=== PATIENT | female | born 1935 | race Caucasian/White ===

== ENCOUNTER → 2016-10-08 | Outpatient (CLI) | payer MEDICARE, BC ==
--- NOTE | 2016-10-08 13:53 | MM ---
Reason for exam: history of breast cancer, mastectomy. Last mammogram was performed 2 years and 2 months ago. History: Patient is postmenopausal and has history of breast cancer at age 48. Family history of breast cancer in daughter at age 50. Excisional biopsy of the left breast, October 18, 2007. Benign stereotactic core biopsy of the left breast, September 23, 2002. Mastectomy of the right breast, 1983. Core biopsy of the left breast. Excisional biopsy of the left breast. Excisional biopsy of the right breast. Physical Findings: Nurse did not find any significant physical abnormalities on exam. MG 3D Diag Mammo W/Cad LT CC and MLO view(s) were taken of the left breast. Prior study comparison: August 07, 2014, left breast MG diagnostic mammo LT w CAD. August 03, 2013, left breast MG diagnostic mammo LT w CAD. July 12, 2012, left diagnostic mammogram w/CAD. There are scattered fibroglandular densities. Previous mammotome biopsy in the left breast. No significant new findings when compared with previous films. These results were verbally communicated with the patient and result sheet given to the patient on 10/08/16. ASSESSMENT: Negative, BI-RAD 1 RECOMMENDATION: Follow-up diagnostic mammogram of the left breast in 1 year. Manage on a clinical basis with regard to possible right cervical lymphadenopathy. Ultrasound can be considered.
== END | disposition home or self-care (01) ==
LOC: RADMAMWWP 10:11
PROVIDERS: ATTEND Family Medicine
DX: Z85.3 Personal history of malignant neoplasm of breast (principal); Z90.11 Acquired absence of right breast and nipple
CPT/HCPCS: G0206; G0279

== ENCOUNTER → 2017-07-29 | Outpatient (CLI) | payer MEDICARE, BC ==
--- NOTE | 2017-07-29 16:10 | XR ---
EXAMINATION TYPE: XR Hip Complete LT DATE OF EXAM: 07/29/2017 CLINICAL HISTORY: pain TECHNIQUE: AP and frogleg views of the left hip are obtained. COMPARISON: None. FINDINGS: There is no acute fracture/dislocation evident. The joint space appears mildly narrowed. The overlying soft tissue appears unremarkable. There may be slightly expansile left ischial lesion adjacent to the inferior pubic ramus. Consider CT correlation. IMPRESSION: 1. There is no acute fracture or dislocation. 2. There may be slightly expansile left ischial lesion adjacent to the inferior pubic ramus. Consider CT correlation.
== END | disposition home or self-care (01) ==
LOC: RADXRYALE 13:52
PROVIDERS: ATTEND Nurse Practitioner Family
DX: M25.552 Pain in left hip (principal)
CPT/HCPCS: 73502

== ENCOUNTER 2017-09-27 17:19 | Inpatient (IN) | payer MEDICARE, BC ==
[2017-09-27] MEDS ORDERED: ACETAMINOPHEN TAB 325 MG TAB PO STA (17:39)
--- NOTE | 2017-09-27 18:01 | ED ---
Lower Extremity Injury HPI - General Chief Complaint: Extremity Injury, Lower Stated Complaint: Fall Time Seen by Provider: 09/27/17 17:25 Source: patient Mode of arrival: ambulatory Limitations: no limitations - History of Present Illness Initial Comments: 82-year-old female patient presents to the emergency department today for evaluation of left hip pain after expressing a fall this morning. Patient states around 10 AM she was getting out of the tub when she tripped and fell landing on her left hip. States that she has been having pain with ambulation since then. She denies hitting her head or losing consciousness. She denies any other injuries. Patient states the pain is mostly located in the left posterior hip. She denies any radiation of the pain down the leg. She denies any numbness or tingling to the lower extremities. She denies any head, neck, or back pain. Denies any loss of bowel or bladder control. Denies any saddle anesthesia. Patient denies any headache, chest pain, shortness of breath, dizziness, weakness, abdominal pain, nausea, vomiting, or difficulties with bowel movements or urination. - Related Data Allergies Allergy/AdvReac Type Severity Reaction Status Date / Time hydrocodone bitartrate AdvReac Unknown Nausea, Verified 09/27/17 17:26 [From [employer]] Dazed. Review of Systems ROS Statement: Those systems with pertinent positive or pertinent negative responses have been documented in the HPI. ROS Other: All systems not noted in ROS Statement are negative. Past Medical History Past Medical History: Cancer, Musculoskeletal Disorder, Osteoarthritis (OA) Additional Past Medical History / Comment(s): HX OF BREAST CANCER, BLADDER PAIN , "LEAKY HEART VALVE", BACK PAIN. History of Any Multi-Drug Resistant Organisms: None Reported Past Surgical History: Back Surgery, Breast Surgery Additional Past Surgical History / Comment(s): RIGHT MASTECTOMY, OVARY REMOVED. Past Anesthesia/Blood Transfusion Reactions: No Reported Reaction Past Psychological History: No Psychological Hx Reported Smoking Status: Never smoker Past Alcohol Use History: None Reported Past Drug Use History: None Reported - Past Family History Father Family Medical History: Cancer, Rheumatoid Arthritis (RA) Daughter(s) Family Medical History: Cancer, GI Bleed Additional Family Medical History / Comment(s): BREAST CANCER General Exam Limitations: no limitations General appearance: alert, in no apparent distress, other (This is a well- developed, well-nourished elderly female patient in no acute distress. Vital signs upon presentation are temperature 97.7F, pulse 58, respirations 18, blood pressure 190/62, pulse ox 96% on room air.) Eye exam: Present: normal appearance, PERRL, EOMI. Absent: scleral icterus, conjunctival injection, periorbital swelling ENT exam: Present: normal exam, normal oropharynx, mucous membranes moist Neck exam: Present: normal inspection, full ROM, other (Nontender, no step-off, no deformity to firm midline palpation of the posterior cervical spine. Full range of motion without pain or limitation.). Absent: tenderness, meningismus, lymphadenopathy Respiratory exam: Present: normal lung sounds bilaterally. Absent: respiratory distress, wheezes, rales, rhonchi, stridor Cardiovascular Exam: Present: regular rate, normal rhythm, normal heart sounds. Absent: systolic murmur, diastolic murmur, rubs, gallop, clicks GI/Abdominal exam: Present: soft, normal bowel sounds. Absent: distended, tenderness, guarding, rebound, rigid Extremities exam: Present: normal inspection, full ROM (Increased pain to the left hip with abduction and external rotation.), normal capillary refill, other (Skin to the lower eduction a pink, warm, and dry. Cap refills less than 3 seconds. Pedal posttibial pulses are 2+ and equal bilaterally. There is no shortening or rotation noted to the legs.). Absent: tenderness, pedal edema, joint swelling, calf tenderness Back exam: Present: normal inspection, other (Nontender, no step-off, no deformity to firm midline palpation of the thoracic and lumbar vertebrae. Full range of motion without pain or limitation.). Absent: vertebral tenderness Neurological exam: Present: alert, oriented X3, CN II-XII intact Psychiatric exam: Present: normal affect, normal mood Skin exam: Present: warm, dry, intact, normal color. Absent: rash Course Vital Signs 09/27/17 17:24 Temperature 97.7 F Pulse Rate 58 L Respiratory 18 Rate Blood Pressure 190/62 O2 Sat by Pulse 96 Oximetry Medical Decision Making - Medical Decision Making 82-year-old female patient presented to the emergency department today for evaluation of left hip pain after expressing a fall this morning. Physical examination was relatively unremarkable, she did have some left hip tenderness however had injured motion and good neurovascular status. There is no shortening or rotation noted. X-ray did reveal a impacted femoral neck fracture. I did discuss the case with Reyna Tucker PA-C [facility] who agrees to admission. She will be admitted to Dr. Carter. Patient will be made nothing by mouth at midnight. Pain management will be provided. Baseline labs will be obtained. - Radiology Data Radiology results: report reviewed, image reviewed Single AP view of the pelvis was obtained. 2 views of the left hip are obtained. There is an acute impacted fractures of the neck of the proximal left femur. The femoral head is in good positioning and the acetabular cavity. The overlying soft tissue appears unremarkable. Frontal view of the pelvis demonstrates preservation of the iliac bones and pubic bones. Impression by Dr. Al shows an acute nondisplaced impacted fracture of the neck of the proximal left femur. Disposition Clinical Impression: Fracture of femoral neck, left, closed Disposition: ADMITTED IP TO THIS [facility] Condition: Serious Referrals: Crescencio Escalona MD [Primary Care Provider] - 1-2 days Decision to Admit Reason: Admit from EC Decision Date: 09/27/17 Decision Time: 19:30
--- NOTE | 2017-09-27 18:29 | XR ---
EXAMINATION TYPE: XR Hip LT and AP Pelvis DATE OF EXAM: 09/27/2017 COMPARISON: NONE HISTORY: Post fall TECHNIQUE: A single AP view of the pelvis is obtained. Two views of the left hip are obtained. FINDINGS: Acute impacted fracture through the neck of the proximal left femur. The femoral head is good positio deonte sided acetabular cavity. The overlying soft tissue appears unremarkable. Frontal view of the pelvis demonstrates preservation of the iliac bones and pubic bones. IMPRESSION: Acute nondisplaced impacted fracture through the neck of the proximal left femur.
[2017-09-27] MEDS ORDERED: NALOXONE 0.4 MG/ML 1 ML VIAL IV PRN (19:26)
[2017-09-27] MEDS ORDERED: ACETAMINOPHEN TAB 325 MG TAB PO PRN (19:26)
[2017-09-27] MEDS ORDERED: MORPHINE SULFATE 2 MG/ML SYRINGE IV PRN (19:26)
[2017-09-27] MEDS ORDERED: ONDANSETRON 4 MG/2 ML VIAL IVP PRN (19:26)
[2017-09-27 19:31] LABS: Basophils % (A) 0 %; Eosinophils # (A) 0.1 k/uL (0-0.7); Eosinophils % (A) 1 %; HCT 37.8 % (34.0-46.0); HGB 12.6 gm/dL (11.4-16.0); Lymphocytes # (A) 1.1 k/uL (1.0-4.8); Lymphocytes % (A) 12 %; MCHC 33.4 g/dL (31.0-37.0); MCV 86.8 fL (80.0-100.0); Mean Platelet Volume 7.6; Monocytes # (A) 0.5 k/uL (0-1.0); Monocytes % (A) 6 %; Neutrophils % (A) 80 %; Platelet Count 190 k/uL (150-450); RBC 4.36 m/uL (3.80-5.40); RDW 14.1 % (11.5-15.5); WBC 8.8 k/uL (3.8-10.6)
--- NOTE | 2017-09-27 19:38 | XR ---
EXAMINATION TYPE: XR chest 1V portable DATE OF EXAM: 09/27/2017 COMPARISON: Prior chest x-ray dated 11/18/2015. HISTORY: Preop chest TECHNIQUE: Single frontal view of the chest is obtained. FINDINGS: There is no focal air space opacity, pleural effusion, or pneumothorax seen. The heart is borderline in size taking into consideration that there is magnification by the portable technique ut ilized. No acute infiltrate, pneumothorax or pulmonary edema. The osseous structures are intact. IMPRESSION: Borderline size heart without vascular decompensation or acute infiltrate or pleural effu sandra.
[2017-09-27 19:40] LABS: Albumin 3.9 g/dL (3.5-5.0); Calcium 9.1 mg/dL (8.4-10.2); Total Bilirubin 0.4 mg/dL (0.2-1.3); Total Protein 6.6 g/dL (6.3-8.2)
[2017-09-27 19:43] LABS: INR 1.1 (<1.2); Partial Thromboplastin Time 22.8 sec (22.0-30.0); Prothrombin Time 10.4 sec (9.0-12.0)
[2017-09-27] MEDS ORDERED: ENALAPRILAT 1.25 MG/ML 1 ML VIAL IVP STA (19:46)
--- NOTE | 2017-09-28 07:51 | P.HPOR ---
History of Present Illness H&P Date: 09/28/17 This is an 82-year-old female who is admitted for left hip fracture after a fall. Patient states that she was getting out of the bathtub yesterday and her bathroom rug was far away so when she stepped out of the shower she slipped and fell. Patient denies hitting her head or any loss of consciousness. Patient states that she was able to walk on the left lower extremity yesterday, but noticed increased pain. Patient complains of pain in the groin with range of motion of the left leg. Patient states that her pain is well controlled today. Patient's past medical history significant for breast cancer. Patient denies any neck pain, back pain, fever/chills, numbness, weakness, tingling, shortness of breath or chest pain. Review of Systems See HPI. Past Medical History Past Medical History: Cancer, Memory Impairment, Musculoskeletal Disorder, Osteoarthritis (OA) Additional Past Medical History / Comment(s): HX OF BREAST CANCER, BLADDER PAIN , "LEAKY HEART VALVE", BACK PAIN. History of Any Multi-Drug Resistant Organisms: None Reported Past Surgical History: Back Surgery, Breast Surgery, Cholecystectomy Additional Past Surgical History / Comment(s): RIGHT MASTECTOMY, OVARY REMOVED. Past Anesthesia/Blood Transfusion Reactions: No Reported Reaction Past Psychological History: No Psychological Hx Reported Smoking Status: Never smoker Past Alcohol Use History: None Reported Past Drug Use History: None Reported - Past Family History Father Family Medical History: Cancer, Rheumatoid Arthritis (RA) Daughter(s) Family Medical History: Cancer, GI Bleed Additional Family Medical History / Comment(s): BREAST CANCER Medications and Allergies Allergies Allergy/AdvReac Type Severity Reaction Status Date / Time hydrocodone bitartrate AdvReac Unknown Nausea, Verified 09/27/17 17:26 [From [place]] Dazed. Physical Examination On exam patient is alert and oriented 3 and lying in bed in no acute distress. Head is normocephalic and atraumatic. Patient has full range of motion of the head and neck without pain or difficulty. Exams of bilateral upper extremities and right lower extremity are within normal limits. Patient has full range of motion of the left lower extremity, but has some groin pain with range of motion. Patient has pain with logroll of the left lower extremity. Calf is soft and nontender to palpation. Patient has full foot and ankle motion bilaterally without pain or difficulty. Dorsalis pedis pulse 2+. Neurovascular status and circulatory status are intact. Results X-rays of the left hip and pelvis show a nondisplaced impacted femoral neck fracture. - Labs Labs: Abnormal Lab Results - Last 24 Hours (Table) 09/27/17 Range/Units 19:21 Chloride 108 H (98-107) mmol/L Carbon Dioxide 21 L (22-30) mmol/L BUN 22 H (7-17) mg/dL H & H 09/27/17 Range/Units 19:21 Hgb 12.6 (11.4-16.0) gm/dL Hct 37.8 (34.0-46.0) % Coagulation 09/27/17 Range/Units 19:21 INR 1.1 (<1.2) Result Diagrams: 09/27/17 19:21 09/27/17 19:21 Assessment and Plan (1) Fall Current Visit: Yes Status: Acute Code(s): W19.XXXA - UNSPECIFIED FALL, INITIAL ENCOUNTER SNOMED Code(s): 6062486 (2) Fracture of femoral neck, left, closed Current Visit: Yes Status: Acute Code(s): S72.002A - FRACTURE OF UNSP PART OF NECK OF LEFT FEMUR, INIT SNOMED Code(s): 762846640 Plan: 1. Patient is to be nonweightbearing to the left lower extremity. 2. NPO diet. 3. Continue pain control. 4. DVT prophylaxis with SCDs and DAVID misbah. 5. Appreciate input from medicine. 6. Left hip hemiarthroplasty scheduled for 09/28/2017, pending medical clearance and consent.
[2017-09-28] MEDS ORDERED: IV FLUID CONTINUATION 1,000 ML IV ONE (14:50)
--- NOTE | 2017-09-28 14:56 | P.CONS ---
History of Present Illness - Reason for Consult Consult date: 09/28/17 Preoperative clearance - Chief Complaint Fall - History of Present Illness 82-year-old female who is admitted for left hip fracture after a mechanical fall. Patient has history of mild dementia and multiple history was taken from the family member at the bedside. She denied having any syncope or loss of consciousness. No head trauma. No shortness of breath, palpitations or chest pain. No dizziness. After the fall she was able to walk on the left leg but was having increased pain in the left hip/groin area. At baseline patient is able to walk for 1 hour every day. She is very active playing golf. She has history of a leaky valve and she follows up with Dr. Pitts for that. Review of Systems 12 point review of system performed, negative except HPI Past Medical History Past Medical History: Cancer, Memory Impairment, Musculoskeletal Disorder, Osteoarthritis (OA) Additional Past Medical History / Comment(s): HX OF BREAST CANCER, BLADDER PAIN , "LEAKY HEART VALVE", BACK PAIN. History of Any Multi-Drug Resistant Organisms: None Reported Past Surgical History: Back Surgery, Breast Surgery, Cholecystectomy Additional Past Surgical History / Comment(s): RIGHT MASTECTOMY, OVARY REMOVED. Past Anesthesia/Blood Transfusion Reactions: No Reported Reaction Past Psychological History: No Psychological Hx Reported Smoking Status: Never smoker Past Alcohol Use History: None Reported Past Drug Use History: None Reported - Past Family History Father Family Medical History: Cancer, Rheumatoid Arthritis (RA) Daughter(s) Family Medical History: Cancer, GI Bleed Additional Family Medical History / Comment(s): BREAST CANCER Medications and Allergies Home Medications Medication Instructions Recorded Confirmed Type Donepezil [Aricept] 10 mg PO HS 09/28/17 09/28/17 History Ibuprofen [Motrin] 800 mg PO TID 09/28/17 09/28/17 History Loperamide [Imodium] 2 mg PO QID 09/28/17 09/28/17 History Pentosan Polysulfate Sodium 100 mg PO TID 09/28/17 09/28/17 History [[place]] Allergies Allergy/AdvReac Type Severity Reaction Status Date / Time hydrocodone bitartrate AdvReac Unknown Nausea, Verified 09/27/17 17:26 [From [place]] Dazed. Physical Exam Vitals: Vital Signs Temp Pulse Pulse Resp BP BP Pulse Ox 09/28/17 09:23 98.3 F 65 16 156/68 95 09/28/17 05:10 98.6 F 63 16 131/51 93 L 09/28/17 04:08 16 09/27/17 21:50 97.9 F 59 L 16 161/65 93 L 09/27/17 20:49 98.0 F 54 L 18 181/83 94 L 09/27/17 20:35 57 L 18 183/78 95 09/27/17 19:34 59 L 18 197/85 94 L 09/27/17 17:24 97.7 F 58 L 18 190/62 96 Intake and Output 09/27/17 09/28/17 09/28/17 22:59 06:59 14:59 Output Total 300 1100 Balance -300 -1100 Output: Urine 300 1100 Other: Voiding Method Indwelling Catheter Indwelling Catheter Weight 63.503 kg Constitutional: No acute distress, conversant, pleasant Eyes:Anicteric sclerae, moist conjunctiva, no lid-lag, PERRLA, ENMT: Oropharynx clear, no erythema, exudates Neck: Supple, FROM, no masses, or JVD, No carotid bruits, No thyromegaly Lungs: Clear to auscultation, Clear to percussion, Normal respiratory effort, no accessory muscle use Cardiovascular: Heart regular in rate and rhythm, No murmurs, gallops, or rubs, No peripheral edema Abdominal: Soft, Nontender, no guarding, rebound or rigidity, Normoactive bowel sounds, No hepatomegaly, No splenomegaly, No palpable mass Skin: Normal temperature, tone, texture, turgor, no induration, No subcutaneous nodules, No rash, lesions, No ulcers Extremities: Severe pain in the left hip with any range of motion, No digital cyanosis, No clubbing, Pedal pulses intact and symmetrical, Radial pulses intact and symmetrical, No calf tenderness Psychiatric: Alert and oriented to person, place and time, appropriate affect, intact judgement Neuro: Muscles Strength 5/5 in all 4 extremities, Sensation to light touch grossly present throughout, Cranial nerves II-XII grossly intact, no focal sensory deficits Results CBC & Chem 7: 09/27/17 19:21 09/27/17 19:21 Labs: Abnormal Lab Results - Last 24 Hours (Table) 09/27/17 Range/Units 19:21 Chloride 108 H (98-107) mmol/L Carbon Dioxide 21 L (22-30) mmol/L BUN 22 H (7-17) mg/dL Assessment and Plan Plan: Preoperative evaluation Patient is very low risk for surgery as she is very active at baseline. 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 Patient is not symptomatic from this, no symptoms of congestive heart failure, no chest pain, shortness of breath or syncope. No palpitations. Discussed with surgery nurse History of mitral regurgitation, severe dementia, overactive bladder Stable Resume home meds DVT prophylaxis Start AC as soon as okay with surgery.
[2017-09-28] MEDS: ceFAZolin IN SWFI 2 GM/20 ML SYRINGE IVP SCH ×2 (15:16→23:46)
[2017-09-28] MEDS ORDERED: MIDAZOLAM 2 MG/2 ML VIAL ONE (15:16)
[2017-09-28] MEDS ORDERED: PROPOFOL 10 MG/ML 20 ML VIAL IV ONE (15:16)
[2017-09-28] MEDS ORDERED: diphenhydrAMINE 50 MG/ML 1 ML VIAL ONE (15:16)
[2017-09-28] MEDS ORDERED: fentaNYL (PF) 50 MCG/ML 2 ML AMP ONE (15:16)
[2017-09-28] MEDS ORDERED: KETAMINE 10 MG/ML 20 ML VIAL ONE (15:16)
[2017-09-28] MEDS ORDERED: HYDROmorphone 0.5 MG/0.5 ML SYRINGE IVP PRN (15:23)
[2017-09-28] MEDS ORDERED: DIAZEPAM 5 MG TAB PO PRN (15:23)
[2017-09-28] MEDS ORDERED: HYDROcodone/APAP 5-325MG 1 EACH TAB PO PRN ×2 (15:23)
[2017-09-28] MEDS ORDERED: ONDANSETRON 4 MG/2 ML VIAL IVP PRN (15:23)
[2017-09-28] MEDS ORDERED: MAGNESIUM HYDROXIDE 2,400 MG/10 ML CUP PO PRN (15:23)
[2017-09-28] MEDS ORDERED: NALOXONE 0.4 MG/ML 1 ML VIAL IV PRN (15:23)
[2017-09-28] MEDS ORDERED: LACTATED RINGERS 1,000 ML IV ONE (15:30)
[2017-09-28] MEDS ORDERED: ceFAZolin 3,000 MG in SODIUM CHLORIDE 0.9% IRRIGATIO 3,000 ML IRRIGATION ONE (15:50)
--- NOTE | 2017-09-28 16:26 | P.OP ---
Date of Procedure: 09/28/17 Preoperative Diagnosis: Subcapital fracture left hip Postoperative Diagnosis: Subcapital fracture left hip Procedure(s) Performed: Left hip hemiarthroplasty the direct anterior approach Implants: Moeller and nephew Polarstem size 3 standard Moeller & Nephew tandem unipolar, 44 mm Moeller & Nephew tandem unipolar 12/14 taper sleeve, -3 mm All components were press-fit. Anesthesia: spinal Surgeon: Kvng Carter Migratory Worker #1: Reyna Schafer Estimated Blood Loss (ml): 75 Pathology: other (Femoral head) Condition: stable Disposition: PACU Indications for Procedure: This is an 82-year-old female that slipped and fell at home. She sustained a subcapital fracture of her left hip. After discussing the surgical and nonsurgical treatment options with her and her family at length, I recommended a left hip hemiarthroplasty and informed consent was obtained. Operative Findings: The operative findings are consistent with a subcapital fracture of the left hip. Description of Procedure: Patient was seen and evaluated in the preoperative area, consent was reviewed, and the surgical site was marked with a skin marker. Patient was then brought to the operating room and given prophylactic antibiotics intravenously.. A spinal anesthetic was administered by the anesthesia department. The patient was then placed on the [place] table with the bony prominences well-padded. The hip area was then prepped and draped in usual sterile fashion. A universal timeout was then performed, which confirmed the patient's name, surgical site, ALLERGIES, and procedure being performed. Next the incision site was located at 1 cm distal and 1 cm lateral to the anterior superior iliac spine. The skin and subcutaneous tissues were sharply incised. Incision was carefully dissected down to the fascia overlying the tensor fascia juan alberto muscle. This fascia was then incised in line with the incision. Next, using blunt finger dissection, the tensor fascia juan alberto muscle was dissected off its investing fascia. The muscle was then carefully retracted laterally with a cobra retractor over the lateral neck of the femur. Next, the circumflex vessels were identified and cauterized using the AquaMantis device. The anterior hip capsule was then exposed. The capsule was then opened and an inverted T fashion. Cobra retractors were then placed intracapsularly. The proximal femur was then visualized. The femoral neck fracture was visualized. The femoral neck was then osteotomized appropriate level above the lesser trochanter. Small amount of traction was placed with the [place] table. A small wedge of bone was then removed from the remaining femoral head. Next, using a corkscrew femoral head was easily removed from the acetabulum. Attention was then directed to the femur. With the aid of the [place] table, the femur was externally rotated to approximately 130, extended, and abducted under the opposite leg. A side hook was then placed under the proximal femur, and the side hook elevator was used to elevate the proximal femur. Retractors were then placed. A capsular release was performed, as well as a release of the conjoined tendon, which afforded excellent visualization of the proximal femur. Next, a box osteotome was used to lateralize the proximal femur. A machine hand was then used to locate the femoral canal. Sequential broaching was then performed with appropriate size which afforded excellent fixation in the proximal femur. A trial was then placed with appropriate head and neck, and the hip was gently reduced with the aid of the [place] table. Fluoroscopy was then used to check position of the components, as well as to ensure equal leg lengths. The hip was then gently dislocated and the trials were then removed. Final implants were then impacted and the hip was again reduced. Final fluoroscopic x-rays confirmed that the components were in anatomic position, as well as equal leg lengths. The hip was also taken through range of motion, and found to be stable. The hip was then copiously irrigated with antibiotic solution with pulsatile lavage. The hip was then irrigated with Irrisept solution. the fascia was then closed with 2-0 strata fix suture. The subcutaneous tissue was closed with 3-0 Vicryl. The subcuticular tissue was closed with 3-0 strata fix suture. The skin was then closed with Dermabond glue and a sterile silver dressing. The patient was then transferred to the recovery room in stable condition. The logistics assistant EDER Szymanski was required due to the complexity of surgery, and the need for skilled surgical appliances salesperson for positioning, draping, exposure, retraction, and closure of the wound.
--- NOTE | 2017-09-28 16:43 | FL ---
Fluoroscopy HISTORY: Pain 22 seconds fluoroscopy time supplied to the referring clinician. 2 intraoperative C-arm images docum ent the procedure. See dictated report from orthopedic surgery.
--- NOTE | 2017-09-28 16:43 | XR ---
Limited left hip HISTORY: Postop 2 views of the left hip from intraoperative C-arm document the procedure.
--- NOTE | 2017-09-28 17:02 | XR ---
EXAMINATION TYPE: XR Hip Limited LT DATE OF EXAM: 09/28/2017 COMPARISON: Yesterday HISTORY: Postop TECHNIQUE: Single view FINDINGS: There is a new left hip prosthesis. Components are in anatomic position. IMPRESSION: Left hip prosthesis without sign of complicating process.
[2017-09-28] MEDS: SODIUM CHLORIDE 0.9% 1,000 ML IV SCH ×2 (17:32→17:47)
[2017-09-28 18:52] LABS: Basophils % (A) 0 %; Eosinophils # (A) 0.2 k/uL (0-0.7); Eosinophils % (A) 1 %; HCT 40.6 % (34.0-46.0); HGB 13.2 gm/dL (11.4-16.0); Lymphocytes # (A) 1.2 k/uL (1.0-4.8); Lymphocytes % (A) 9 %; MCH 29.4 pg (25.0-35.0); MCHC 32.6 g/dL (31.0-37.0); MCV 90.4 fL (80.0-100.0); Monocytes # (A) 0.7 k/uL (0-1.0); Monocytes % (A) 5 %; Neutrophils # (A) 11.6 k/uL (1.3-7.7); Neutrophils % (A) 84 %; Platelet Count 212 k/uL (150-450); RDW 14.2 % (11.5-15.5); WBC 13.9 k/uL (3.8-10.6)
[2017-09-28] MEDS: traMADol 50 MG TAB PO PRN (19:20)
[2017-09-28] MEDS: ASPIRIN 325 MG TAB PO SCH (21:58)
[2017-09-28] MEDS: SENNOSIDES-DOCUSATE SODIUM 1 EACH TAB PO SCH (21:58)
[2017-09-28] MEDS: DONEPEZIL 10 MG TAB PO SCH (21:58)
[2017-09-29] MEDS: traMADol 50 MG TAB PO PRN ×2 (05:54→21:26)
[2017-09-29] MEDS: SODIUM CHLORIDE 0.9% 1,000 ML IV SCH (08:36)
[2017-09-29] MEDS: ASPIRIN 325 MG TAB PO SCH ×2 (08:37→21:26)
[2017-09-29] MEDS: ELMIRON 100 MG PO SCH ×3 (10:21→21:25)
--- NOTE | 2017-09-29 17:31 | P.PN ---
Subjective Progress Note Date: 09/29/17 This is an 82 year-old female who is status post left hip hemiarthroplasty with direct anterior approach. This is post operative day #1. Patient is seen and evaluated at bedside. Patient reports some soreness to the left hip, but overall states that her pain is well-controlled. Patient states that she has been up and walking with physical therapy. Patient denies any new symptoms or complaints today. Patient denies any fever/chills, numbness, weakness, tingling , shortness of breath or chest pain. Objective - Vital Signs Vital signs: Vital Signs Temp 97.6 F 09/29/17 07:03 Pulse 57 L 09/29/17 07:10 Resp 16 09/29/17 07:03 BP 123/70 09/29/17 07:03 Pulse Ox 95 09/29/17 07:03 Intake & Output 09/28/17 09/29/17 09/29/17 18:59 06:59 18:59 Intake Total 601 520 175 Output Total 780 350 75 Balance -179 170 100 Intake: IV 601 Intake, IV Titration 520 Amount Sodium Chloride 0.9% 1, 520 000 ml @ 65 mls/hr IV . [id number] [facility] Rx#:[id number] Oral 175 Output: Urine 705 350 75 Uretheral (Osorio) 75 Estimated Blood Loss 75 Other: Voiding Method Indwelling Catheter Indwelling Catheter Indwelling Catheter # Voids 2 1 - Exam On exam patient is sitting up in a chair in no acute distress. Patient is well- appearing and alert and oriented x3. Dressing is clean, dry and intact. There is minimal soft tissue swelling of the left thigh. Patient has full foot and ankle motion without pain or difficulty. Calf is soft and nontender to palpation. Sensation intact. Neurovascular status and circulatory status are intact. - Labs CBC & Chem 7: 09/28/17 18:16 09/27/17 19:21 Labs: Abnormal Lab Results - Last 24 Hours (Table) 09/28/17 Range/Units 18:16 WBC 13.9 H (3.8-10.6) k/uL Neutrophils # 11.6 H (1.3-7.7) k/uL Assessment and Plan (1) Fall Current Visit: Yes Status: Acute Code(s): W19.XXXA - UNSPECIFIED FALL, INITIAL ENCOUNTER SNOMED Code(s): 1996541 (2) Fracture of femoral neck, left, closed Current Visit: Yes Status: Acute Code(s): S72.002A - FRACTURE OF UNSP PART OF NECK OF LEFT FEMUR, INIT SNOMED Code(s): 578339645 (3) S/P hip hemiarthroplasty Current Visit: Yes Status: Acute Code(s): Z96.649 - PRESENCE OF UNSPECIFIED ARTIFICIAL HIP JOINT SNOMED Code(s): 306908153 Plan: 1. Weightbearing as tolerated. 2. Leave dressing intact for 10 days. 3. DVT prophylaxis with aspirin. 4. Physical therapy today. 5. Continue pain control and routine postoperative care. 6. Awaiting discharge to rehab, likely tomorrow.
[2017-09-29] MEDS ORDERED: LACTATED RINGERS 1,000 ML IV SCH (18:45)
[2017-09-29] MEDS: SENNOSIDES-DOCUSATE SODIUM 1 EACH TAB PO SCH (21:26)
[2017-09-29] MEDS: DONEPEZIL 10 MG TAB PO SCH (21:27)
--- NOTE | 2017-09-30 05:39 | PN ---
PROGRESS NOTE DATE OF SERVICE: 09/29/2017. PRESENTING COMPLAINT: Left hip hemiarthroplasty. INTERVAL HISTORY: This is this is a patient with fall and fracture of the left hip, status post hemiarthroplasty. Pain and muscle spasm present in the left chest. Appetite is not very good. Daughter at the bedside. Breathing is stable. REVIEW OF SYSTEMS: Done for constitutional, cardiovascular, GI, pulmonary; relevant findings as above. CURRENT MEDICATIONS: Reviewed, include aspirin for DVT prophylaxis. PHYSICAL EXAMINATION: Temperature 97.6, pulse 65, respiration 16, blood pressure 123/70, pulse ox 95% on room air. GENERAL APPEARANCE: Sitting up in a chair, awake. EYES: Pupils equal. Conjunctivae normal. HEENT: External ears and nose normal. Oral cavity normal. NECK: No JVD not raised. Mass not palpable. Respiratory effort normal. LUNGS: Clear. CARDIOVASCULAR: 1st and 2nd sounds normal. No edema. ABDOMEN: Soft, nontender. Liver and spleen not palpable. PSYCHIATRY: Awake, able to answer simple questions. INVESTIGATIONS: White count 13.9. ASSESSMENT: 1. Left hip hemiarthroplasty following subcapital fracture secondary to fall. 2. 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 3. Leukocytosis, reactive from surgery. No evidence of infection. 4. Left hip muscle spasm. 5. Primary osteoarthritis, multiple joints bilateral. PLAN: Continue medication and treatment plan. Care was discussed with the patient's daughter at the bedside. Looking for patient to go to the [facility]. MMCAYETANO / BARBARAN: [id number] /
[2017-09-30 07:59] VITALS: BP 157/70; PULSE 81; RESP 18; TEMP 97.1
[2017-09-30] MEDS: ELMIRON 100 MG PO SCH (07:59)
[2017-09-30] MEDS: ASPIRIN 325 MG TAB PO SCH (08:00)
[2017-09-30] MEDS: traMADol 50 MG TAB PO PRN ×2 (08:00→13:18)
--- NOTE | 2017-09-30 10:50 | P.DS ---
Providers Date of admission: 09/27/17 19:39 Expected date of discharge: 09/30/17 Attending physician: Kvng Carter Consults: 09/28/17 22:01 Consult Physician Routine Consulting Provider: Emmett Ash Consult Reason/Comments: Medical Management Do you want consulting provider notified?: Already Contacted Primary care physician: Crescencio Escalona - Discharge Diagnosis(es) (1) Fall Current Visit: Yes Status: Acute (2) Fracture of femoral neck, left, closed Current Visit: Yes Status: Acute (3) S/P hip hemiarthroplasty Current Visit: Yes Status: Acute Hospital Course: This is an 82-year-old female who sustained a subcapital fracture of her left hip after a fall. The patient presents for evaluation. After discussion and consideration patient elects to proceed with left hip hemiarthroplasty. The patient is seen preoperatively by Dr. Carter and medically cleared for surgery by internal medicine. Patient is admitted to [facility] on 09/27/2017 and left hip hemiarthroplasty was done on 09/28/2017. The procedures performed without complication or sequelae. The patient is doing well postoperatively. Labs and vital signs are stable on day of discharge. On day of discharge patient's hip incision is healing well. There is minimal erythema. There is no drainage noted at this time. There is minimal soft tissue swelling to the hip and thigh. Patient has full foot and ankle motion without difficulty or pain. Neurovascular status to the left lower extremity is intact. Patient is discharged to rehab in good condition. Please see med rec for accurate list of home medications. Patient Condition at Discharge: Serious Plan - Discharge Summary Discharge Rx Participant: Yes New Discharge Prescriptions: New Aspirin 325 mg PO BID #60 tab Sennosides [Senokot] 1 tab PO BID #60 tablet traMADol HCl [Ultram] 50 mg PO Q6H PRN #90 tab PRN Reason: Pain No Action Donepezil [Aricept] 10 mg PO HS Ibuprofen [Motrin] 800 mg PO TID Loperamide [Imodium] 2 mg PO QID Pentosan Polysulfate Sodium [Elmiron] 100 mg PO TID Discharge Medication List Donepezil [Aricept] 10 mg PO HS 09/28/17 [History] Ibuprofen [Motrin] 800 mg PO TID 09/28/17 [History] Loperamide [Imodium] 2 mg PO QID 09/28/17 [History] Pentosan Polysulfate Sodium [Elmiron] 100 mg PO TID 09/28/17 [History] Aspirin 325 mg PO BID #60 tab 09/30/17 [Rx] Sennosides [Senokot] 1 tab PO BID #60 tablet 09/30/17 [Rx] traMADol HCl [Ultram] 50 mg PO Q6H PRN #90 tab 09/30/17 [Rx] Follow up Appointment(s)/Referral(s): Crescencio Escalona MD [Primary Care Provider] - 1-2 days Kvng Carter DO [Doctor of Osteopathic Medicine] - 10/14/17 9:20 am Activity/Diet/Wound Care/Special Instructions: Weightbearing as tolerated with walker Leave dressing intact. Dressing may be removed by home care nurse in 10 days. May shower with dressing on. Follow-up with [facility] in 2 weeks, please call with any questions or concerns [phone] Discharge Disposition: TRANSFER TO SNF/ECF
--- NOTE | 2017-09-30 19:55 | PN ---
PROGRESS NOTE DATE OF SERVICE: 09/30/17 PRESENTING COMPLAINT: Left hip surgery. INTERVAL HISTORY: This is a patient status post left hip surgery. Pain is better controlled. Did tolerate some diet. Did work with therapy. Otherwise feeling good. Sitting up in a chair. Family is present. REVIEW OF SYSTEMS: Done for constitutional, cardiovascular, GI, musculoskeletal; relevant findings as above. CURRENT MEDICATIONS: Reviewed. EXAMINATION: Temperature 97.1, pulse 81, respiratory 18, blood pressure 157/70, pulse ox 92% on room air. GENERAL APPEARANCE: Sitting up in a chair, comfortable, awake. EYES: Pupils equal. Conjunctivae normal. HEENT: External appearance of nose and ears normal. Oral cavity normal. NECK: JVD not raised. Mass not palpable. RESPIRATORY: Effort normal. Lungs are clear. CARDIOVASCULAR: First and second sounds, no edema. ABDOMEN: Soft, nontender. Liver and spleen not palpable. PSYCHIATRY: Awake, answering simple questions. INVESTIGATIONS: No blood work from today. ASSESSMENT: 1. Left hip hemiarthroplasty following subcapital fracture secondary to fall. 2. 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 3. Leukocytosis reactive from surgery. No evidence of infection. 4. Left leg muscle spasm. 5. Primary osteoarthritis in multiple joints bilateral. PLAN: Patient is medically stable, going to the [facility]. Care was discussed with the patient and family at the bedside. MMODL / IJN: [id number] /
== END 2017-09-30 13:40 | DRG 470 ==
LOC: EC 17:19 → 5MS5E 19:39 → 3SUR 09-28 08:50
PROVIDERS: ADMIT Orthopaedic Surgery; ATTEND Orthopaedic Surgery
PROC: 0SRS0JA Replacement of Left Hip Joint, Femoral Surface with Synthetic Substitute, Uncemented, Open Approach (ICD-10-PCS; principal; 2017-09-28 15:16)
DX: S72.012A Unspecified intracapsular fracture of left femur, initial encounter for closed fracture (principal); W18.2XXA Fall in (into) shower or empty bathtub, initial encounter; G30.9 Alzheimer's disease, unspecified; M15.9 Polyosteoarthritis, unspecified; F02.80 Dementia in other diseases classified elsewhere, unspecified severity, without behavioral disturbance, psychotic disturbance, mood disturbance, and anxiety; Y92.002 Bathroom of unspecified non-institutional (private) residence as the place of occurrence of the external cause; Z85.3 Personal history of malignant neoplasm of breast; Y92.009 Unspecified place in unspecified non-institutional (private) residence as the place of occurrence of the external cause; Y93.E1 Activity, personal bathing and showering; Z79.899 Other long term (current) drug therapy; Z80.3 Family history of malignant neoplasm of breast; Z90.11 Acquired absence of right breast and nipple; Z90.721 Acquired absence of ovaries, unilateral
CPT/HCPCS: 36415; 51702; 71045; 73501; 73502; 80053; 85025; 85610; 85730; 93005; 96374; 99284

== ENCOUNTER → 2018-06-09 | Outpatient (CLI) | payer MEDICARE, BC ==
--- NOTE | 2018-06-09 13:58 | MM ---
Reason for exam: additional evaluation requested from prior study. Last mammogram was performed 1 year and 8 months ago. History: Patient is postmenopausal and has history of breast cancer at age 48. Family history of breast cancer in daughter at age 50. Excisional biopsy of the left breast, October 18, 2007. Benign stereotactic core biopsy of the left breast, September 23, 2002. Mastectomy of the right breast, 1983. Core biopsy of the left breast. Excisional biopsy of the left breast. Excisional biopsy of the right breast. Physical Findings: Nurse did not find any significant physical abnormalities on exam. MG 3D Diag Mammo W/Cad LT CC and MLO view(s) were taken of the left breast. Prior study comparison: October 08, 2016, left breast MG 3d diag mammo w/cad LT. August 07, 2014, left breast MG diagnostic mammo LT w CAD. Finding: There are typically benign vascular, round, linear calcifications in the left breast. Previous mammotome biopsy in the left breast. There is no discrete abnormality. These results were verbally communicated with the patient and result sheet given to the patient on 06/09/18. ASSESSMENT: Benign, BI-RAD 2 RECOMMENDATION: Follow-up diagnostic mammogram of the left breast in 1 year.
== END ==
LOC: RADMAMWWP 12:43
PROVIDERS: ATTEND Family Medicine
DX: Z08 Encounter for follow-up examination after completed treatment for malignant neoplasm (principal); Z85.3 Personal history of malignant neoplasm of breast; Z90.10 Acquired absence of unspecified breast and nipple
CPT/HCPCS: 77065; G0279; 77061

== ENCOUNTER 2022-03-04 23:57 | Emergency (ER) | payer MEDICARE, BC ==
--- NOTE | 2022-03-05 00:13 | ED ---
Fall HPI - General Stated Complaint: Fall Time Seen by Provider: 03/05/22 00:06 Source: RN notes reviewed, old records reviewed, Caregiver Mode of arrival: EMS Limitations: altered mental status - History of Present Illness Initial Comments: This is an 78-year-old female poor story had a fall fall from standing on blood thinners. Rosamaria. Patient did hit head has bleeding mild from scalp. Patient has no complaints but is also difficult to participating history taking MD Complaint: fall -: minutes(s) Fall From: standing When Fall Occurred: 1 hour [employer] Fall Witnessed: yes, by family Place Fall Occurred: home Loss of Consciousness: none Prolonged Down Time?: no Symptoms Prior to Fall: none Location: head Severity: moderate Severity scale (1-10): 3 Context: tripped/slipped Associated Symptoms: denies - Related Data Home Medications Medication Instructions Recorded Confirmed Donepezil [Aricept] 10 mg PO HS 09/28/17 09/28/17 Ibuprofen [Motrin] 800 mg PO TID 09/28/17 09/28/17 Loperamide [Imodium] 2 mg PO QID 09/28/17 09/28/17 Pentosan Polysulfate Sodium 100 mg PO TID 09/28/17 09/28/17 [Elmiron] Previous Rx's Medication Instructions Recorded Aspirin 325 mg PO BID #60 tab 09/30/17 Sennosides [Senokot] 1 tab PO BID #60 tablet 09/30/17 traMADol HCl [Ultram] 50 mg PO Q6H PRN #90 tab 09/30/17 Allergies Allergy/AdvReac Type Severity Reaction Status Date / Time hydrocodone bitartrate AdvReac Unknown Nausea, Verified 03/05/22 00:21 [From [place]] Dazed. Review of Systems ROS Statement: Those systems with pertinent positive or pertinent negative responses have been documented in the HPI. ROS Other: All systems not noted in ROS Statement are negative. Past Medical History Past Medical History: Cancer, Memory Impairment, Musculoskeletal Disorder, Osteoarthritis (OA) Additional Past Medical History / Comment(s): HX OF BREAST CANCER, BLADDER PAIN, "LEAKY HEART VALVE", BACK PAIN. History of Any Multi-Drug Resistant Organisms: None Reported Past Surgical History: Back Surgery, Breast Surgery, Cholecystectomy Additional Past Surgical History / Comment(s): RIGHT MASTECTOMY, OVARY REMOVED. Past Anesthesia/Blood Transfusion Reactions: No Reported Reaction Past Psychological History: No Psychological Hx Reported Past Alcohol Use History: None Reported Past Drug Use History: None Reported - Past Family History Father Family Medical History: Cancer, Rheumatoid Arthritis (RA) Daughter(s) Family Medical History: Cancer, GI Bleed Additional Family Medical History / Comment(s): BREAST CANCER General Exam General appearance: alert, in no apparent distress Head exam: Present: normocephalic, normal inspection. Absent: atraumatic (Abrasion to posterior occiput) Eye exam: Present: normal appearance, PERRL, EOMI. Absent: scleral icterus, conjunctival injection, periorbital swelling ENT exam: Present: normal exam, mucous membranes moist Neck exam: Present: normal inspection. Absent: tenderness, meningismus, lymphadenopathy Respiratory exam: Present: normal lung sounds bilaterally. Absent: respiratory distress, wheezes, rales, rhonchi, stridor Cardiovascular Exam: Present: regular rate, normal rhythm, normal heart sounds. Absent: systolic murmur, diastolic murmur, rubs, gallop, clicks GI/Abdominal exam: Present: soft, normal bowel sounds. Absent: distended, tenderness, guarding, rebound, rigid Extremities exam: Present: normal inspection, full ROM, normal capillary refill. Absent: tenderness, pedal edema, joint swelling, calf tenderness Back exam: Present: normal inspection Neurological exam: Present: alert, oriented X3, CN II-XII intact Psychiatric exam: Present: normal affect, normal mood Skin exam: Present: warm, dry, intact, normal color. Absent: rash Course Vital Signs 03/05/22 03/05/22 00:21 02:32 Temperature 98.1 F Pulse Rate 74 81 Respiratory 15 15 Rate Blood Pressure 128/79 129/78 O2 Sat by Pulse 99 98 Oximetry - Reevaluation(s) Reevaluation #1: 03/05/22 01:21 Medical records reviewed Reevaluation #2: 03/05/22 02:54 Patient is in no distress Medical Decision Making - Medical Decision Making 78 female status post fall. Patient does have head injury. Patient can be discharged home on [facility]. - Radiology Data Radiology results: report reviewed (CT brain C-spine negative for genetic injury chest and pelvis x-ray negative for traumatic injury), image reviewed Disposition Clinical Impression: Closed head injury, Fall, Abrasion head Disposition: HOME SELF-CARE Condition: Good Instructions (If sedation given, give patient instructions): Abrasion (ED), Concussion (ED) Is patient prescribed a controlled substance at d/c from ED?: No Referrals: Crescencio Escalona MD [Primary Care Provider] - 1-2 days Time of Disposition: 03:00
[2022-03-05 00:25] VITALS: RESP 15; TEMP 98.1
--- NOTE | 2022-03-05 01:23 | CT ---
EXAMINATION TYPE: CT brain milly nye con DATE OF EXAM: 03/05/2022 COMPARISON: None HISTORY: Fall CT DLP: 1443.8 mGycm Automated exposure control for dose reduction was used. Images of the brain and cervical spine obtained with no contrast. There is diffuse cerebral cortical atrophy. There is no mass effect or midline shift. No sign of intr acranial hemorrhage. The calvarium is intact. There is left temporal scalp hematoma. Skull base is in tact. There is normal aeration of the mastoid sinuses. The cervical vertebra have normal alignment. Posterior elements are intact. There is mild degenerativ e disc space narrowing in the mid cervical spine. Facet joints are intact. There is multilevel hypert rophic facet arthropathy. IMPRESSION: Minor degenerative changes of the cervical spine. No fracture. Cerebral atrophy. No acute intracranial abnormality. Left temporal scalp hematoma.
--- NOTE | 2022-03-05 01:25 | XR ---
EXAMINATION TYPE: XR pelvis AP view DATE OF EXAM: 03/05/2022 COMPARISON: 09/27/2017 HISTORY: Pain TECHNIQUE: Single view FINDINGS: There is osteopenia. There is left hip prosthesis. Pelvic ring is intact. Sacroiliac joints are intact. IMPRESSION: No acute abnormality of the pelvis. No adverse change
--- NOTE | 2022-03-05 01:26 | XR ---
EXAMINATION TYPE: XR chest 1V portable DATE OF EXAM: 03/05/2022 COMPARISON: 09/27/2017 HISTORY: Short of breath TECHNIQUE: FINDINGS: Heart is enlarged. There is pulmonary vascular congestion. There is blunting of the right c ostophrenic angle. There is pulmonary interstitial and airspace edema. IMPRESSION: Congestive heart failure with right pleural effusion. Heart failure and pleural fluid are new compared to old exam.
[2022-03-05 02:33] VITALS: BP 129/78; PULSE 81
== END 2022-03-05 03:04 | disposition home or self-care (01) ==
LOC: EC 23:57
DX: S00.91XA Abrasion of unspecified part of head, initial encounter (principal); S09.90XA Unspecified injury of head, initial encounter; Z88.5 Allergy status to narcotic agent; W18.30XA Fall on same level, unspecified, initial encounter
CPT/HCPCS: 70450; 71045; 72125; 72170; 99285